=== PATIENT | female | born 1970 | race Native Hawaiian/Other Pacific Islander ===

== ENCOUNTER 2017-03-29 11:16 | Emergency (ER) | payer SELFPAY ==
[~2017-03-29] VITALS: Ht 157.5 cm; Wt 76.8 kg
[2017-03-29 11:25] VITALS: TEMP 97.5
[2017-03-29 12:05] VITALS: BP 124/76
[2017-03-29 12:26] LABS: BASO # 0.1 (0.0-0.2); EOS # 0.9 (0.0-0.7); EOS % 10.8 % (0-4.0); GRAN # 4.7 (1.4-6.5); GRAN % 55.4 % (42.2-75.2); HEMATOCRIT 41.5 % (37.0-47.0); LYMPH # 2.3 (1.2-3.4); LYMPH % 26.2 % (20.0-51.0); MEAN CELL VOLUME 91 fl (80.0-100.0); MEAN CORPUSCULAR HEMOGLOBIN 31 pg (27.0-31.0); MEAN CORPUSCULAR HGB CONC 34 g/dl (33.0-37.0); MEAN PLATELET VOLUME 10.1 fl (7.4-10.4); MONO # 0.5 (0.1-0.6); MONO % 6.3 % (1.7-9.3); PLATELET COUNT 315 K/mm3 (130-400); RED BLOOD COUNT 4.56 M/mm3 (4.10-5.30); WHITE BLOOD COUNT 8.6 K/mm3 (4.8-10.8)
[2017-03-29 12:36] LABS: ADJUSTED CALCIUM 8.9 mg/dL (8.4-10.2); ALBUMIN 4.3 gm/dL (3.5-5.0); BILIRUBIN,TOTAL 0.4 mg/dL (0.0-1.0); CALCIUM 9.1 mg/dL (8.4-10.2); CREATININE, serum 0.81 mg/dL (0.52-1.25); TOTAL PROTEIN 8.5 gm/dL (6.4-8.2)
[2017-03-29] MEDS ORDERED: ANTIVERT 25MG25 MG PO (13:07)
[2017-03-29 13:25] LABS: COLLECTION METHOD CLEAN CATCH
[2017-03-29 13:34] LABS: MUCOUS Present /lpf; PH 6 (5-8); SQUAMOUS EPITHELIAL 0-2 /hpf; URINE APPEARANCE Clear; URINE BACTERIA None Seen /hpf; URINE BILIRUBIN Negative (NEGATIVE); URINE BLOOD 2+ (NEGATIVE); URINE COLOR Straw; URINE GLUCOSE Negative (NEGATIVE); URINE KETONE Negative (NEGATIVE); URINE LEUKOCYTE ESTERASE Negative (NEGATIVE); URINE PROTEIN(semi-quant) Negative (NEGATIVE); URINE RBC 0-2 /hpf; URINE UROBILINOGEN Negative (NEGATIVE); URINE WBC 0-2 /hpf
[2017-03-29 14:00] VITALS: PULSE 80
== END 2017-03-29 13:46 | disposition home or self-care (01) ==
LOC: COL.ER 11:16
PROVIDERS: Nurse Practitioner
DX: R42 Dizziness and giddiness (principal); Z98.51 Tubal ligation status; Z98.890 Other specified postprocedural states